=== PATIENT | female | born 1935 | race Caucasian/White ===

== ENCOUNTER 2017-04-26 23:36 | Emergency (ER) | payer MEDICARE ==
[~2017-04-26] VITALS: Ht 152.4 cm; Wt 50.8 kg
[~2017-04-26 23:36] MED LIST: AMLO10TA2 PO; LISI30TA4 PO
[2017-04-27 00:55] VITALS: BP 114/88
== END 2017-04-27 01:08 | disposition home or self-care (01) ==
LOC: ED 23:59
DX: S81.811A Laceration without foreign body, right lower leg, initial encounter (principal); X58.XXXA Exposure to other specified factors, initial encounter; Y93.01 Activity, walking, marching and hiking; Y92.89 Other specified places as the place of occurrence of the external cause; Y99.8 Other external cause status
CPT/HCPCS: 99282

== ENCOUNTER 2018-09-19 07:45 | Inpatient (IN) | payer MEDICARE ==
[~2018-09-19] VITALS: Ht 152.4 cm; Wt 48.9 kg
[2018-09-20 14:05] VITALS: BP 119/56
== END 2018-09-20 17:17 | disposition home or self-care (01) | DRG 641 ==
LOC: ED 09:58 → EDIP 10:48 → 3NE 12:03
PROVIDERS: ADMIT Internal Medicine; ATTEND Internal Medicine
DX: E87.1 Hypo-osmolality and hyponatremia (principal); I10 Essential (primary) hypertension; L08.9 Local infection of the skin and subcutaneous tissue, unspecified; R19.7 Diarrhea, unspecified; Z90.710 Acquired absence of both cervix and uterus; Z72.89 Other problems related to lifestyle
CPT/HCPCS: 36415; 80048; 80053; 82436; 83735; 84100; 84133; 84300; 85025; 87324; G0378; Q0162; J7030